=== PATIENT | male | born 1985 | race Caucasian/White ===

== ENCOUNTER 2017-11-20 18:00 | Outpatient (RCR) | payer MEDICAID, SELFPAY ==
--- NOTE | 2017-10-31 16:59 | HP.PTEVAL ---
Patient's Visit Information SUSAN KAISER is a 32 year old M referred to Physical Therapy by Alcon Mays with a diagnosis of CERVICALALGIA,PAIN IN LEFT AND RIGHT ELBOW. Date of Evaluation: 10/31/17 Physical Therapist: Marcos Wayne PT, - Visit Plan Frequency: 2x /Week Duration: 4 Weeks Plan: postural ex's,strengthenin LEFT shoulder RTC /scapular,thoracic ex's ,tabby ex's - Subjective Subjective: This 32 y/o male presents to physical therapy with cervical radiculopathy.Patient seen orthopedics teacher recommended PT. Patient has had cervical pain after having lumbar disectomy 2013. Past 4 weeks patient has had radiculopathy left deltoid to elbow. Pain located let cervical spine and lateral deltoid desribed as ache. Patient has h/o bone spur shoulder 2017 from a x-rays.Patient has had PT for left shoulder. Symptoms lifting left arm over head pain in deltoid,turning cervical spine, reading,flexion looking down.Patient pain affects sleeping.Denies parathesia/tingling.Ocassionally PARIKH ,frontal /occiput. Denies nausea/tinnutis/dizziness. VOCATION: [employer]. SOCAIL: single - Pain Left Neck Pain Intensity (Out of 10): 4 Pain Intensity Range: 10 Left Shoulder Pain Intensity (Out of 10): 8 Pain Intensity Range: 10 - Objective POSTURE: rounded shoulders head fowar thoracic kyposis ,reduce lordoisis. PALPATION: TTP anterior shoulder and acromion. NEURO: denies parathesia/tingling ,C5-6-7 3/3, no myotomal weakness. 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 MMT: gross L UE 4/5, all resistive testing elicits L shld pain RTC ,deltoid. ROM: Cervical Retraction/Protraction WFL, B rotation moderate loss, flexion moderate loss, extension minimal loss, B lateral flexion minimal loss. Shoulder: L shoulder flexion 120, abduction,abduction right 110 degrees,,left 100 degrres pain,ER 90 - Special Tests C/S Radiculapathy - Left Upper limb tension test: Negative C/S Radiculapathy - Right Upper limb tension test: Negative C/S Radiculapathy - Left Spurlings: Negative C/S Radiculapathy - Right Spurlings: Negative C/S Radiculapathy - Left Cervical distraction: Negative C/S Radiculapathy - Right Cervical distraction: Negative C/S Radiculapathy - Left Relief test: Negative C/S Radiculapathy - Right Relief test: Negative C/S Radiculapathy - Valsalva: Negative Sharp Dipti: Negative Vertebral Artery Test: Negative Alar Ligament Test: Negative Cervical Sitting: Protrusion - Mechanical Response: No effect Cervical Sitting: Protrusion - Symptoms During Testing: No effect Cervical Sitting: Protrusion - Symptoms After Testing: No effect Cervical Sitting: Retraction - Mechanical Response: No effect Cervical Sitting: Retraction - Symptoms During Testing: Increases Cervical Sitting: Retraction - Symptoms After Testing: No worse L Shoulder Supine Impingement Test - RC Tear: Negative L Shoulder Lift Off Test - Subscapular Tear: Negative L Shoulder Drop Sign - IS Test: Negative L Shoulder Empty Can - SS: Positive L Shoulder Neer - Impingement: Positive L Shoulder Carpio Mynor - Impingement: Positive L Shoulder Yeargasons - SLAP: Negative L Shoulder Shrug Sign - OA/Adhesive Capsulitis: Negative R Elbow Tinels - Ulnar n.: Negative R Elbow Valgus Stress Test - MCL Instability: Negative R Elbow Varus Stress Stest - MCL Instability: Negative R Elbow Lat Epiconylitis - as named: Negative L Elbow Tinels - Ulnar n.: Negative L Elbow Valgus Stress Test - MCL Instability: Negative L Elbow Varus Stress Stest - MCL Instability: Negative L Elbow Lat Epiconylitis - as named: Negative - Goals Goal 1:: Independant with HEP Goal Time Frame: 4-6 Weeks Goal 2:: Independant with posture for ADL'S Goal Time Frame: 4-6 Weeks Goal 3:: Patient decrease left shoulder and cervical pain by 50 % or greater to improve function. Goal Time Frame: 4-6 Weeks Goal 4:: Patient to increase cervical ROM WFL for function of recovery. Goal Time Frame: 4-6 Weeks Goal 5:: Patient to improve shoulder ROM WFL for activities above 90 degrees for ADL's and housework tasks. Goal Time Frame: 4-6 Weeks Goal 6:: Patient be able to perform ADL'S and job demands julia ramos - Rehabilitation Potential Physical Therapy Diagnosis: This 32 y/o male presents to physical therapy with left shoulder imingement along with postural deficts ,weakness of postural muscles and decrease ROM shoulder. Rehabilitation Potential: Good - Anticipated Interventions Patient/Client Instruction: Educate patient on: Condition, Plan of Care For the Purpose of:: To decrease pain, To increase ROM, To improve nutrient delivery to tissue, To increase oxygenation perfusion, To improve muscle performance and motor function, To increase tolerance to activity/condition/position, To improve ability of physical actions for home/community/work/leisure, To improve health of tissue, To decrease soft tissue restriction, To increase flexibility/ROM, To assume or resume ADL's, To reduce risk of recurrence, To improve ability to perform tasks related to life management Therapeutic Exercise to Include: Strength training, Body mechanics, Postural training, Flexibilty training, Tabby Exercises Comment: RTC For the Purpose of:: To decrease pain, To increase ROM, To improve muscle performance and motor function, To increase tolerance to activity/condition/position, To improve performance and independence with ADL's, To improve ability of physical actions for home/community/work/leisure, To improve health of tissue, To decrease soft tissue restriction, To increase flexibility/ROM, To reduce risk of recurrence, To improve ability to perform tasks related to life management TENS: Yes IF ES: Yes Cryotherapy (ice pack, ice massage): Yes Thermo therapy (hot pack): Yes Ultrasound (thermal/non thermal): Yes For the Purpose of:: To decrease pain, To increase ROM, To improve nutrient delivery to tissue, To increase oxygenation perfusion, To improve health of tissue, To decrease soft tissue restriction Thank you for the opportunity to evaluate your patient. For Medicare and Medicare HMO plans, please review the plan of care and approve it. It will need to be FAXED BACK to us at [phone] for Medicare purposes. Please let me know if there are questions or concerns regarding this plan of care. Physician Signature: Date:
--- NOTE | 2017-11-20 18:00 | DT_ITS ---
This patient was seen during an EMR downtime November 13, 2017 - November 20, 2017. This patient may have a combination of paper and electronic documentation or all paper documentation. All documentation is viewable within the e-chart portion of [email or web address] for each patient visit.
--- NOTE | 2018-01-16 13:28 | HP.PTDCSUM ---
HP - PT D/C Summary It has been my pleasure to treat SUSAN KAISER under orders from Alcon Mays, for the diagnosis of CERVICALALGIA,PAIN IN LEFT AND RIGHT ELBOW for a total of 6 visit(s). Discharge Date: Please see the following information for a summary of their discharge status. - Subjective Subjective: Pt reports that he has been busy with work in the past week and has been experiencing increased shoulder pain as a result. He reports 5-6/10 shoulder pain and elbow pain with movement. - Pain Left Neck Pain Intensity (Out of 10): 0 Left Shoulder Pain Intensity (Out of 10): 6 LB Pain Intensity (Out of 10): Unrated - Objective Objective/Function: Due to electronic downtime procedure,the information from November 13 through the November 19 was electronically scanned into the medical record. Poor postural awareness in sitting, many cues to correct in the clinic. Fair tolerance to strengthening, very weak and sounds to be associating fatigue with pain in the L shoulder. Medial elbow pain unchanged with neural glides/flossing. - Goals Goal 1:: Independant with HEP Goal 2:: Independant with posture for ADL'S Goal 3:: Patient decrease left shoulder and cervical pain by 50 % or greater to improve function. Goal 4:: Patient to increase cervical ROM WFL for function of recovery. Goal 5:: Patient to improve shoulder ROM WFL for activities above 90 degrees for ADL's and housework tasks. Goal 6:: Patient be able to perform ADL'S and job demands julia fraziers - Plan Plan: Continue with postural strengthening progression. - D/C Information If there are questions or concerns regarding this patient's physical therapy, please feel free to call me at [phone]. Thank you for the referral of this patient. Sincerely, Marcos Wayne, PT,
== END 2017-11-20 19:00 | disposition home or self-care (01) ==
LOC: PT 18:00
PROVIDERS: Visit Provider Orthopaedic Surgery
DX: M25.521 Pain in right elbow (principal); M25.522 Pain in left elbow; M54.2 Cervicalgia
CPT/HCPCS: 97035; 97110; 97162

== ENCOUNTER → 2017-11-24 13:06 | Outpatient (CLI) | payer MEDICAID, SELFPAY ==
[2017-11-24 13:59] LABS: Creatinine, Serum 1.03 mg/dL (0.70-1.30); EST Glomerular Filtration Rate 88 mL/min (>60); Est Glom Filt Rate - Afr Amer 107 mL/min (>60)
== END ==
PROVIDERS: Visit Provider Orthopaedic Surgery
DX: M54.5 Low back pain (principal); N28.9 Disorder of kidney and ureter, unspecified
CPT/HCPCS: 36415; 82565

== ENCOUNTER → 2017-12-22 08:22 | Outpatient (CLI) | payer MEDICAID, SELFPAY ==
--- NOTE | 2017-12-22 08:26 | NM_ITS ---
CLINICAL: 32-year-old male with reported history of posttraumatic low back discomfort. WHOLE BODY 99m Tc MDP RADIONUCLIDE BONE SCINTIGRAPHY COMPARISON: None available FINDINGS: Following the intravenous administration of 27.0 mCi of 99m Tc MDP, whole body bone images reveal: 1. Increased radiopharmaceutical concentration is identified in the upper cervical spine posteriorly on the right, the acromioclavicular compartments of both shoulders, glenohumeral compartment of the left shoulder, left wrist, the patellofemoral compartment of the left knee, bilateral elbow articulations, dorsal medial compartment of the left ankle, right midfoot and left forefoot, distribution of the first sacral segment anteriorly and posteriorly. 2. The remaining skeletal structures are scintigraphically unremarkable with normal-appearing renal images and urinary bladder activity identified. Enhanced uptake is defined in the bilateral maxillary and right mandible most consistent with periodontal disease and/or periostitis. NM/Bone Scan Whole Body IMPRESSION: 1. The increased radiopharmaceutical concentration identified in the sacrum, bilateral shoulders, left wrist, left knee, right and left elbows, left ankle, the right midfoot and left forefoot is most consistent with degenerative arthritis. Correlation with magnetic resonance imaging may be of benefit for further evaluation of the sacral abnormality. Electronically Signed: Francisco Deng DO at 12:29 EDT Tel , Service support ,
== END ==
PROVIDERS: Visit Provider Orthopaedic Surgery
DX: M51.37 Other intervertebral disc degeneration, lumbosacral region (principal)
CPT/HCPCS: 78306

== ENCOUNTER 2018-01-30 18:15 | Emergency (ER) | payer MEDICAID, SELFPAY ==
[2018-01-30 18:16] VITALS: BP 123/77; PULSE 101; RESP 16; TEMP 37.1; O2SAT 97; BMI 20.4
--- NOTE | 2018-01-30 18:35 | ED.VISSUMM ---
- ER Visit Summary Date of Service: 01/30/18 Chief Complaint: Dental pain History of Present Illness: The patient is a 32 M presenting with dental pain. He states it started on Monday. He has pain in the right lower molars. He states on Monday he was hit in the jaw by his child while changing a diaper. Since that time it has been more swollen and painful. He has been taking ibuprofen at home. He has an appointment with his dentist on . He denies fever or other complaints. Physical Examination: Vitals are stable. Patient is afebrile. Alert no acute distress. HEENT exam widespread dental decay, tenderness right lower molar with no surrounding fluctuance, no sublingual edema Neck is supple. Lungs are clear and equal bilaterally. Heart is regular rate and rhythm. Extremities are unremarkable. Skin is warm and dry. Remainder of exam is unremarkable. Emergency Department Course and Treatment: Patient declines pain medication and only wants antibiotics. He is given penicillin. X-ray of the mandible was obtained and shows questionable lucency around a right lower molar which had previous root canal. This requires further dental evaluation. Normal mandible. Patient was advised of these findings. He has a dental appointment on . He is given a prescription for penicillin. Advised to return to ED if worsening complaints. Disposition: Discharge home Impression: Odontalgia, jaw contusion This note was generated with [employer] dictation software. It may contain incorrect words, spelling, and punctuation that were not noted in review of the chart prior to signing ED Disposition - Plan for ED Patient: Disposition: Home or Assisted Living Chief Complaint: Dental Instructions: ED Tooth Pain Prescriptions: Penicillin V Potassium 500 mg PO 4X/DAY #40 tablet Referrals: Care Physician,No Primary [Primary Care Provider] -
--- NOTE | 2018-01-30 18:38 | ED.DEP ---
ED Disposition - Plan for ED Patient: Chief Complaint: Dental Instructions: ED Tooth Pain Prescriptions: Penicillin V Potassium 500 mg PO 4X/DAY #40 tablet Referrals: Care Physician,No Primary [Primary Care Provider] -
[2018-01-30] MEDS: Penicillin Vk 250 MG Tablet 500 MG PO (18:56)
[2018-01-30 20:04] VITALS: BP 139/84; PULSE 63; RESP 17; O2SAT 98
== END 2018-01-30 20:05 | disposition home or self-care (01) ==
PROVIDERS: Emergency Provider Emergency Medicine
DX: K08.89 Other specified disorders of teeth and supporting structures (principal); S00.83XA Contusion of other part of head, initial encounter; Z72.0 Tobacco use; Z79.899 Other long term (current) drug therapy; W50.0XXA Accidental hit or strike by another person, initial encounter; Y93.89 Activity, other specified; Y92.009 Unspecified place in unspecified non-institutional (private) residence as the place of occurrence of the external cause; Y99.8 Other external cause status
CPT/HCPCS: 70110; 99283

== ENCOUNTER 2024-03-31 09:59 | Emergency (ER) | payer MEDICAID, SELFPAY ==
[2024-03-31 10:00] VITALS: BP 141/91; PULSE 94; RESP 16; TEMP 36.4; O2SAT 99; BMI 21.5
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
--- NOTE | 2024-03-31 11:03 | RAD_ITS ---
EXAM: XR LEFT KNEE, 3 VIEWS CLINICAL INDICATION: Left knee injury. TECHNIQUE: Three views of the left knee. COMPARISON: No relevant prior studies available. FINDINGS: BONES/JOINTS: Diffuse osteopenia. No acute fracture. No subluxation. Normal alignment. Preservation of the joint space. No sclerotic or destructive changes observed. SOFT TISSUES: Unremarkable. No soft tissue swelling or gas. No radiopaque foreign body. RAD/Knee 3 Views IMPRESSION: 1. Diffuse osteopenia. 2. No suspicious acute fracture or acute osseous abnormality of the left knee. Electronically Signed: Jalen Quezada MD at 11:40 EDT ,
[2024-03-31 12:28] VITALS: BP 139/71; PULSE 88; RESP 18; TEMP 36.4; O2SAT 99
== END 2024-03-31 12:29 | disposition home or self-care (01) ==
PROVIDERS: Emergency Provider Surgery; PCP Physician Assistant; Visit Provider Surgery
DX: S86.912A Strain of unspecified muscle(s) and tendon(s) at lower leg level, left leg, initial encounter (principal); J44.9 Chronic obstructive pulmonary disease, unspecified; F17.210 Nicotine dependence, cigarettes, uncomplicated; M19.90 Unspecified osteoarthritis, unspecified site; V86.99XA Unspecified occupant of other special all-terrain or other off-road motor vehicle injured in nontraffic accident, initial encounter; S80.811A Abrasion, right lower leg, initial encounter; S90.811A Abrasion, right foot, initial encounter; Z79.899 Other long term (current) drug therapy
CPT/HCPCS: 73562; 99282